=== PATIENT | female | born 1945 | race Caucasian/White ===

== ENCOUNTER 2019-02-26 11:08 | Inpatient (IN) ==
[2019-02-26 12:21] LABS: Basophils % 0.1 %; Hemoglobin 14.1 g/dL (11.5-15.4); Mean Corpuscular Volume 89.5 fL (83.0-100.0); Monocytes % 5.4 %
[2019-02-26 12:22] LABS: Prothrombin Time 11.9 Seconds (9.4-12.1)
[2019-02-26 12:23] LABS: Immature Granulocytes % 0.9 % (0-4); Immature Platelets 8.1 % (1.1-6.1); Lymphocytes # 0.3 K/mcL (0.6-4.6); Lymphocytes % 4.6 %; Mean Corpuscular HGB Conc 34.4 g/dL (31.6-35.5); Mean Corpuscular Hemoglobin 30.8 pg (28.0-33.3); Mean Platelet Volume 10.5 fL (9.4-12.4); Monocytes # 0.4 K/mcL (0.0-1.3); Neutrophils # 6.2 K/mcL (1.6-8.9); Red Blood Count 4.58 M/mcL (3.82-4.97); Red Cell Distribution Width 13.8 % (11.5-14.5)
[2019-02-26 12:28] LABS: Platelet Count 49 K/mcL (140-400)
[2019-02-26 12:54] LABS: Alanine Aminotransferase 116 Units/L (7-52); Albumin 3.6 g/dL (3.5-5.7); Alkaline Phosphatase 136 Units/L (34-104); Aspartate Amino Transferase 148 Units/L (13-39); BUN/Creatinine Ratio 25 (6-26); Bilirubin,Direct 0.2 mg/dL (0.0-0.2); Bilirubin,Indirect 0.6 mg/dL (0.0-1.0); Bilirubin,Total 0.8 mg/dL (0.3-1.0); Blood Urea Nitrogen 17 mg/dL (8-23); Calcium 8.9 mg/dL (8.6-10.3); Carbon Dioxide 44 mEq/L (23-29); Chloride 85 mEq/L (98-107); Globulin 1.8 g/dL (2.4-3.5); Glucose 255 mg/dL (70-105); Osmolality,Calculated 298 (280-300); Potassium 2.4 mEq/L (3.5-5.1); Sodium 139 mEq/L (136-145); Total Protein 5.4 g/dL (6.4-8.9); Troponin I 0.03 ng/mL (< 0.04); eGFR For African Americans > 60 (> 60); eGFR For Non-African Americans > 60 (> 60)
[2019-02-26] MEDS ORDERED: Isovue-370 500 ML BOTTLE IVP ONE (15:03)
[2019-02-26] MEDS ORDERED: Ondansetron 4 MG/2 ML VIAL IVP PRN (17:52)
[2019-02-26] MEDS ORDERED: Naloxone 0.4 MG/ML INJ IVP PRN ×2 (17:52→18:29)
[2019-02-26 18:01] LABS: Alanine Aminotransferase 116 Units/L (7-52); Albumin 3.5 g/dL (3.5-5.7); Albumin/Globulin Ratio 2.1 (1.1-2.2); Alkaline Phosphatase 149 Units/L (34-104); Aspartate Amino Transferase 149 Units/L (13-39); BUN/Creatinine Ratio 22 (6-26); Bilirubin,Total 0.7 mg/dL (0.3-1.0); Blood Urea Nitrogen 16 mg/dL (8-23); Calcium 8.5 mg/dL (8.6-10.3); Chloride 88 mEq/L (98-107); Globulin 1.7 g/dL (2.4-3.5); Glucose 487 mg/dL (70-105); Osmolality,Calculated 309 (280-300); Potassium 3.3 mEq/L (3.5-5.1); Sodium 138 mEq/L (136-145); Total Protein 5.2 g/dL (6.4-8.9); eGFR For African Americans > 60 (> 60); eGFR For Non-African Americans > 60 (> 60)
[2019-02-26] MEDS ORDERED: Dextrose Gel 15 GM/37.5 ML TUBE PO PRN ×2 (18:13)
[2019-02-26] MEDS ORDERED: D5% in Water 1,000 ML IVC PRN (18:13)
[2019-02-26] MEDS ORDERED: *HR* Dextrose 50 % in Water (Syg) 50 ML SYRINGE IVP PRN (18:13)
[2019-02-26 18:24] LABS: Carbon Dioxide 43 mEq/L (23-29)
[2019-02-26] MEDS ORDERED: Acetaminophen 325 MG TABLET PO PRN (18:29)
[2019-02-26] MEDS ORDERED: *HR* OxyCODONE Immed Rel 5 MG TABLET PO PRN (18:29)
[2019-02-26] MEDS ORDERED: *HR* LORazepam 1 MG TABLET PO SCH (21:00)
[2019-02-26] MEDS ORDERED: Insulin LISPRO 300 UNITS/3 ML VIAL SQ SCH (21:00)
[2019-02-26] MEDS: *HR* LORazepam 0.5 MG TABLET PO SCH (21:32)
[2019-02-26] MEDS: Budesonide/Formoterol 160/4.5 1 PUFF INH IH SCH (21:35)
[2019-02-26] MEDS ORDERED: POTASSIUM CHLORIDE IVPB ONE (22:15)
[2019-02-26] MEDS ORDERED: SODIUM CHLORIDE 0.9% IVPB ONE (22:15)
[2019-02-26] MEDS ORDERED: LIDOCAINE MPF 1% IVPB ONE (22:15)
[2019-02-26] MEDS ORDERED: Potassium Chloride 40 MEQ, Lidocaine 1% 2 ML in 0.9 % Sodium Chloride 500 ML IVPB ONE (22:45)
[2019-02-27] MEDS: *HR* Heparin 5,000 UNIT/ML VIAL SQ SCH ×2 (05:35→18:09)
[2019-02-27 05:53] LABS: Basophils % 0.2 %; Mean Corpuscular Volume 92.2 fL (83.0-100.0); Red Cell Distribution Width 14.1 % (11.5-14.5)
[2019-02-27 05:55] LABS: Hematocrit 37.8 % (35.3-44.9); Hemoglobin 12.6 g/dL (11.5-15.4); Immature Granulocytes % 0.8 % (0-4); Immature Platelets 7.9 % (1.1-6.1); Lymphocytes # 0.2 K/mcL (0.6-4.6); Mean Corpuscular HGB Conc 33.3 g/dL (31.6-35.5); Mean Corpuscular Hemoglobin 30.7 pg (28.0-33.3); Mean Platelet Volume 12.1 fL (9.4-12.4); Monocytes # 0.4 K/mcL (0.0-1.3); Monocytes % 6.2 %; Neutrophils # 5.3 K/mcL (1.6-8.9); Segmented Neutrophils % 88.8 %
[2019-02-27 05:57] LABS: Platelet Count 34 K/mcL (140-400)
[2019-02-27 06:27] LABS: Alanine Aminotransferase 97 Units/L (7-52); Albumin 3.1 g/dL (3.5-5.7); Albumin/Globulin Ratio 1.8 (1.1-2.2); Alkaline Phosphatase 123 Units/L (34-104); Aspartate Amino Transferase 96 Units/L (13-39); BUN/Creatinine Ratio 22 (6-26); Bilirubin,Total 0.6 mg/dL (0.3-1.0); Blood Urea Nitrogen 12 mg/dL (8-23); Calcium 8.3 mg/dL (8.6-10.3); Carbon Dioxide 41 mEq/L (23-29); Chloride 92 mEq/L (98-107); Globulin 1.7 g/dL (2.4-3.5); Glucose 255 mg/dL (70-105); Osmolality,Calculated 302 (280-300); Sodium 142 mEq/L (136-145); Total Protein 4.8 g/dL (6.4-8.9); eGFR For African Americans > 60 (> 60); eGFR For Non-African Americans > 60 (> 60)
[2019-02-27 07:09] LABS: Estimated Average Glucose 171 mg/dl
[2019-02-27] MEDS ORDERED: Insulin LISPRO 300 UNITS/3 ML VIAL SQ SCH ×2 (07:30→08:11)
[2019-02-27] MEDS: *HR* LORazepam 0.5 MG TABLET PO SCH (09:35)
[2019-02-27] MEDS ORDERED: Magic Mouthwash 10 ML UD Cup PO PRN (09:58)
[2019-02-27] MEDS ORDERED: *HR* LORazepam 0.5 MG TABLET PO PRN (10:04)
[2019-02-27 10:08] LABS: Adenovirus F 40/41 PCR Not detected (Not detect); C.difficile Toxin A/B Gene PCR Not detected (Not detect); Campylobacter by PCR Not detected (Not detect); Cryptosporidium by PCR Not detected (Not detect); Cyclospora cayetanensis PCR Not detected (Not detect); Entamoeba histolytica PCR Not detected (Not detect); Enteroaggregative E.coli(EAEC) Not detected (Not detect); Enteropathogenic E.coli(EPEC) Not detected (Not detect); Enterotoxigenic E.coli (ETEC) Not detected (Not detect); Giardia lamblia PCR Not detected (Not detect); Plesiomonas shigelloides PCR Not detected (Not detect); Salmonella PCR Not detected (Not detect); Shig/EnteroinvasiveE coli EIEC Not detected (Not detect); Shigalike tox-prod E coli STEC Not detected (Not detect); Vibrio PCR Not detected (Not detect); Vibrio cholerae PCR Not detected (Not detect); Yersinia enterocolitica PCR Not detected (Not detect)
[2019-02-27 10:09] LABS: Astrovirus PCR Not detected (Not detect); Norovirus GI/GII PCR Not detected (Not detect); Rotavirus A PCR Not detected (Not detect); Sapovirus PCR Not detected (Not detect)
[2019-02-27] MEDS: Budesonide/Formoterol 160/4.5 1 PUFF INH IH SCH ×3 (10:14→22:27)
[2019-02-27 10:19] LABS: ABG Base Excess 20 mEq/L (-2 to 3); ABG HCO3 44 mEq/L (21-27); ABG Oxygen Saturation 90 % (95-98); ABG PCO2 46 mmHg (35-45); ABG PH 7.59 pH Units (7.32-7.45); ABG PO2 51 mmHg (85-104); ABG TCO2 46 mEq/L (20-26)
[2019-02-27] MEDS: Insulin LISPRO 300 UNITS/3 ML VIAL SQ SCH ×2 (13:16→18:09)
[2019-02-27] MEDS: Gabapentin 300 MG CAPSULE PO SCH ×2 (13:16→20:18)
[2019-02-27] MEDS: Primidone 50 MG TABLET PO SCH ×2 (13:16→20:18)
[2019-02-27 13:19] LABS: Adenovirus Not Detected (Not Detect); Bordetella Pertussis Not Detected (Not Detect); Chlamydophila pneumoniae Not Detected (Not Detect); Coronavirus 229E Not Detected (Not Detect); Coronavirus HKU1 Not Detected (Not Detect); Coronavirus NL63 Not Detected (Not Detect); Coronavirus OC43 Not Detected (Not Detect); Human Metapneumovirus Not Detected (Not Detect); Human Rhinovirus/Enterovirus Not Detected (Not Detect); Influenza A Subtype 2009 H1 Not Detected (Not Detect); Influenza B Not Detected (Not Detect); Mycoplasma pneumoniae Not Detected (Not Detect); Parainfluenza Virus 1 Not Detected (Not Detect); Parainfluenza Virus 2 Not Detected (Not Detect); Parainfluenza Virus 3 Not Detected (Not Detect); Parainfluenza Virus 4 Not Detected (Not Detect); Respiratory Syncytial Virus Not Detected (Not Detect)
[2019-02-27 14:33] LABS: BUN/Creatinine Ratio 18 (6-26); Blood Urea Nitrogen 13 mg/dL (8-23); Calcium 8.7 mg/dL (8.6-10.3); Carbon Dioxide 41 mEq/L (23-29); Chloride 90 mEq/L (98-107); Glucose 393 mg/dL (70-105); Magnesium 1.9 mg/dL (1.6-2.6); Osmolality,Calculated 308 (280-300); Potassium 3.4 mEq/L (3.5-5.1); Sodium 141 mEq/L (136-145); eGFR For African Americans > 60 (> 60); eGFR For Non-African Americans > 60 (> 60)
[2019-02-28 01:08] LABS: Basophils % 0.1 %; Hematocrit 38.6 % (35.3-44.9); Immature Platelets 10.1 % (1.1-6.1); Lymphocytes # 0.3 K/mcL (0.6-4.6); Lymphocytes % 5.1 %; Mean Corpuscular HGB Conc 33.7 g/dL (31.6-35.5); Mean Corpuscular Volume 91.9 fL (83.0-100.0); Monocytes # 0.3 K/mcL (0.0-1.3); Monocytes % 5.1 %; Neutrophils # 5.9 K/mcL (1.6-8.9); Red Cell Distribution Width 14.2 % (11.5-14.5); Segmented Neutrophils % 88.7 %; White Blood Count 6.7 K/mcL (4.3-11.1)
[2019-02-28 01:16] LABS: Platelet Count 36 K/mcL (140-400)
[2019-02-28 01:27] LABS: Alanine Aminotransferase 85 Units/L (7-52); Albumin 3.1 g/dL (3.5-5.7); Albumin/Globulin Ratio 1.6 (1.1-2.2); Alkaline Phosphatase 121 Units/L (34-104); Aspartate Amino Transferase 61 Units/L (13-39); BUN/Creatinine Ratio 23 (6-26); Bilirubin,Total 0.5 mg/dL (0.3-1.0); Blood Urea Nitrogen 14 mg/dL (8-23); Calcium 8.3 mg/dL (8.6-10.3); Carbon Dioxide 39 mEq/L (23-29); Chloride 96 mEq/L (98-107); Glucose 105 mg/dL (70-105); Magnesium 2.1 mg/dL (1.6-2.6); Osmolality,Calculated 293 (280-300); Phosphorous 1.6 mg/dL (2.7-4.5); Potassium 3.5 mEq/L (3.5-5.1); Sodium 141 mEq/L (136-145); Total Protein 5.1 g/dL (6.4-8.9); eGFR For African Americans > 60 (> 60); eGFR For Non-African Americans > 60 (> 60)
[2019-02-28] MEDS: *HR* Heparin 5,000 UNIT/ML VIAL SQ SCH ×2 (05:09→16:34)
[2019-02-28] MEDS: Budesonide/Formoterol 160/4.5 1 PUFF INH IH SCH ×2 (07:58→20:10)
[2019-02-28] MEDS: Insulin LISPRO 300 UNITS/3 ML VIAL SQ SCH ×4 (08:18→20:30)
[2019-02-28] MEDS: Primidone 50 MG TABLET PO SCH ×3 (08:18→20:29)
[2019-02-28] MEDS: Gabapentin 300 MG CAPSULE PO SCH ×3 (08:18→20:29)
[2019-02-28] MEDS: Cholecalciferol (D-3) 1,000 UNIT (25MCG) TABLET PO SCH (08:18)
[2019-03-01] MEDS: Insulin LISPRO 300 UNITS/3 ML VIAL SQ SCH ×6 (00:57→21:25)
[2019-03-01 02:46] LABS: BUN/Creatinine Ratio 31 (6-26); Blood Urea Nitrogen 24 mg/dL (8-23); Calcium 8.5 mg/dL (8.6-10.3); Carbon Dioxide 40 mEq/L (23-29); Chloride 91 mEq/L (98-107); Glucose 180 mg/dL (70-105); Osmolality,Calculated 297 (280-300); Phosphorous 2.3 mg/dL (2.7-4.5); Potassium 3.4 mEq/L (3.5-5.1); Sodium 139 mEq/L (136-145); eGFR For African Americans > 60 (> 60); eGFR For Non-African Americans > 60 (> 60)
[2019-03-01] MEDS: *HR* Heparin 5,000 UNIT/ML VIAL SQ SCH ×2 (05:27→17:53)
[2019-03-01] MEDS: Budesonide/Formoterol 160/4.5 1 PUFF INH IH SCH ×2 (08:13→20:16)
[2019-03-01] MEDS: Insulin DETEMIR 100 UNIT/ML X5UNITS SQ SCH ×3 (10:58→21:25)
[2019-03-01] MEDS: Primidone 50 MG TABLET PO SCH ×3 (10:58→21:25)
[2019-03-01] MEDS: Gabapentin 300 MG CAPSULE PO SCH ×3 (10:58→21:25)
[2019-03-01] MEDS: Cholecalciferol (D-3) 1,000 UNIT (25MCG) TABLET PO SCH (10:58)
[2019-03-02] MEDS: Insulin LISPRO 300 UNITS/3 ML VIAL SQ SCH ×4 (00:45→13:08)
[2019-03-02 05:02] LABS: BUN/Creatinine Ratio 35 (6-26); Blood Urea Nitrogen 19 mg/dL (8-23); Calcium 8.9 mg/dL (8.6-10.3); Carbon Dioxide 38 mEq/L (23-29); Chloride 95 mEq/L (98-107); Glucose 68 mg/dL (70-105); Magnesium 1.9 mg/dL (1.6-2.6); Osmolality,Calculated 289 (280-300); Phosphorous 2.6 mg/dL (2.7-4.5); Potassium 3.6 mEq/L (3.5-5.1); Sodium 139 mEq/L (136-145); eGFR For African Americans > 60 (> 60); eGFR For Non-African Americans > 60 (> 60)
[2019-03-02] MEDS: *HR* Heparin 5,000 UNIT/ML VIAL SQ SCH (05:27)
[2019-03-02 07:22] VITALS: BP 130/76
[2019-03-02] MEDS: Budesonide/Formoterol 160/4.5 1 PUFF INH IH SCH (08:09)
[2019-03-02] MEDS: Primidone 50 MG TABLET PO SCH (08:28)
[2019-03-02] MEDS: Insulin DETEMIR 100 UNIT/ML X5UNITS SQ SCH (08:28)
[2019-03-02] MEDS: Cholecalciferol (D-3) 1,000 UNIT (25MCG) TABLET PO SCH (08:28)
[2019-03-02] MEDS: Gabapentin 300 MG CAPSULE PO SCH (08:28)
== END 2019-03-02 15:15 | DRG 641 ==
LOC: EMEROOARM 11:08 → 3BNU 11:08 → SUATTDRO 18:29 → 3BNU 19:34
PROVIDERS: ADMIT Internal Medicine; ATTEND Internal Medicine

== ENCOUNTER 2019-03-24 14:35 | Inpatient (IN) ==
[2019-03-24] MEDS ORDERED: 0.9 % Sodium Chloride 250 ML IVC ONE (14:43)
[2019-03-24 15:44] LABS: Prothrombin Time 11.7 Seconds (9.4-12.1)
[2019-03-24 15:49] LABS: Activated Partial Thrombo Time 16.6 Seconds (26.0-36.0)
[2019-03-24 16:06] LABS: Basophils % 0.2 %; Hemoglobin 12.3 g/dL (11.5-15.4); Immature Granulocytes % 0.7 % (0-4); Lymphocytes # 0.4 K/mcL (0.6-4.6); Lymphocytes % 4.2 %; Mean Corpuscular HGB Conc 33.2 g/dL (31.6-35.5); Mean Corpuscular Hemoglobin 30.8 pg (28.0-33.3); Mean Corpuscular Volume 92.7 fL (83.0-100.0); Mean Platelet Volume 13.6 fL (9.4-12.4); Monocytes # 0.2 K/mcL (0.0-1.3); Monocytes % 2.2 %; Neutrophils # 8.3 K/mcL (1.6-8.9); Red Blood Count 3.99 M/mcL (3.82-4.97); Red Cell Distribution Width 16.7 % (11.5-14.5); Segmented Neutrophils % 92.7 %
[2019-03-24 16:09] LABS: Alanine Aminotransferase 153 Units/L (7-52); Albumin 2.4 g/dL (3.5-5.7); Alkaline Phosphatase 373 Units/L (34-104); Aspartate Amino Transferase 462 Units/L (13-39); BUN/Creatinine Ratio 33 (6-26); Bilirubin,Total 1.4 mg/dL (0.3-1.0); Blood Urea Nitrogen 16 mg/dL (8-23); Calcium 7.7 mg/dL (8.6-10.3); Carbon Dioxide 39 mEq/L (23-29); Chloride 94 mEq/L (98-107); Globulin 2.3 g/dL (2.4-3.5); Glucose 98 mg/dL (70-105); Osmolality,Calculated 291 (280-300); Potassium 3.3 mEq/L (3.5-5.1); Sodium 140 mEq/L (136-145); Total Protein 4.7 g/dL (6.4-8.9); Troponin I 0.03 ng/mL (< 0.04); eGFR For African Americans > 60 (> 60); eGFR For Non-African Americans > 60 (> 60)
[2019-03-24 16:09] LABS: Platelet Count 33 K/mcL (140-400)
[2019-03-24] MEDS ORDERED: Ipratropium/Albuterol Neb 3 ML IH ONE (16:28)
[2019-03-24 17:34] LABS: Bilirubin,Urine Moderate (Negative); Blood,Urine Negative (Negative); Clarity,Urine Cloudy (Clear); Color,Urine Dark Yellow (Yellow); Glucose,Urine (UA) Normal (Normal); Ketones,Urine Trace mg/dL (Negative); Leukocyte Esterase,Urine Negative (Negative); Nitrite,Urine Negative (Negative); PH,Urine 5.5 pH Units (5.0-8.0); Protein,Urine 100 mg/dL (Neg-Trace); Specific Gravity,Urine 1.025 (1.010-1.025); Urobilinogen,Urine Normal (Normal)
[2019-03-24 17:36] LABS: RBC,Urine 15-30 per hpf (0-3); Squamous Epithelial Cell,Urine Many per lpf (None-Few); WBC,Urine 0-3 per hpf (0-3)
[2019-03-24 17:55] LABS: Bacteria,Urine Moderate per hpf (None-Few); Hyaline Casts,Urine Moderate per lpf (None-Few)
[2019-03-24] MEDS ORDERED: Isovue-370 500 ML BOTTLE IVP ONE (18:21)
[2019-03-24] MEDS ORDERED: Acetaminophen 325 MG TABLET PO PRN (20:58)
[2019-03-24] MEDS ORDERED: Naloxone 0.4 MG/ML INJ IVP PRN (20:58)
[2019-03-24] MEDS ORDERED: Ondansetron 4 MG/2 ML VIAL IVP PRN (20:58)
[2019-03-24] MEDS ORDERED: *HR* LORazepam 0.5 MG TABLET PO PRN (21:02)
[2019-03-24] MEDS ORDERED: *HR* Dextrose 50 % in Water (Syg) 50 ML SYRINGE IVP PRN (21:13)
[2019-03-24] MEDS ORDERED: Dextrose Gel 15 GM/37.5 ML TUBE PO PRN ×2 (21:13)
[2019-03-24] MEDS ORDERED: D5% in Water 1,000 ML IVC PRN (21:13)
[2019-03-24] MEDS ORDERED: Furosemide 40 MG/4 ML VIAL IVP ONE (21:39)
[2019-03-24] MEDS ORDERED: Furosemide 40 MG/4 ML VIAL ONE (21:40)
[2019-03-24] MEDS ORDERED: Ipratropium/Albuterol Neb 3 ML IH PRN (22:55)
[2019-03-25 03:22] LABS: Adenovirus Not Detected (Not Detect); Bordetella Pertussis Not Detected (Not Detect); Chlamydophila pneumoniae Not Detected (Not Detect); Coronavirus 229E Not Detected (Not Detect); Coronavirus HKU1 Not Detected (Not Detect); Coronavirus NL63 Not Detected (Not Detect); Coronavirus OC43 Not Detected (Not Detect); Human Metapneumovirus DETECTED (Not Detect); Human Rhinovirus/Enterovirus Not Detected (Not Detect); Influenza A Subtype 2009 H1 Not Detected (Not Detect); Influenza B Not Detected (Not Detect); Parainfluenza Virus 1 Not Detected (Not Detect); Parainfluenza Virus 2 Not Detected (Not Detect); Parainfluenza Virus 3 Not Detected (Not Detect); Parainfluenza Virus 4 Not Detected (Not Detect); Respiratory Syncytial Virus Not Detected (Not Detect)
[2019-03-25 03:23] LABS: Mycoplasma pneumoniae Not Detected (Not Detect)
[2019-03-25 05:05] LABS: Nucleated Red Blood Cells 0.4 /100 WBC (0)
[2019-03-25 05:07] LABS: Basophils % 0.4 %; Hematocrit 36.5 % (35.3-44.9); Hemoglobin 12.4 g/dL (11.5-15.4); Immature Granulocytes % 1.6 % (0-4); Immature Platelets 23.7 % (1.1-6.1); Lymphocytes # 0.6 K/mcL (0.6-4.6); Lymphocytes % 7.6 %; Mean Corpuscular Hemoglobin 30.8 pg (28.0-33.3); Mean Corpuscular Volume 90.6 fL (83.0-100.0); Mean Platelet Volume 13.9 fL (9.4-12.4); Monocytes # 0.2 K/mcL (0.0-1.3); Monocytes % 2.4 %; Neutrophils # 6.7 K/mcL (1.6-8.9); Red Blood Count 4.03 M/mcL (3.82-4.97); Red Cell Distribution Width 16.9 % (11.5-14.5); White Blood Count 7.6 K/mcL (4.3-11.1)
[2019-03-25 05:28] LABS: BUN/Creatinine Ratio 39 (6-26); Blood Urea Nitrogen 15 mg/dL (8-23); Calcium 7.7 mg/dL (8.6-10.3); Carbon Dioxide 39 mEq/L (23-29); Chloride 93 mEq/L (98-107); Glucose 81 mg/dL (70-105); Magnesium 1.7 mg/dL (1.6-2.6); Osmolality,Calculated 290 (280-300); Phosphorous 2.6 mg/dL (2.7-4.5); Potassium 3.6 mEq/L (3.5-5.1); Sodium 140 mEq/L (136-145); eGFR For African Americans > 60 (> 60); eGFR For Non-African Americans > 60 (> 60)
[2019-03-25 05:54] LABS: Albumin 2.6 g/dL (3.5-5.7); Albumin/Globulin Ratio 1.2 (1.1-2.2); Bilirubin,Direct 0.9 mg/dL (0.0-0.2); Bilirubin,Indirect 1.3 mg/dL (0.0-1.0); Bilirubin,Total 2.2 mg/dL (0.3-1.0); Globulin 2.1 g/dL (2.4-3.5); Thyroid Stimulating Hormone 1.697 mcIU/mL (0.340-5.600); Total Protein 4.7 g/dL (6.4-8.9)
[2019-03-25 06:05] LABS: Platelet Count 18 K/mcL (140-400)
[2019-03-25] MEDS ORDERED: 0.9 % Sodium Chloride 250 ML IVC SCH (06:45)
[2019-03-25] MEDS: Insulin LISPRO 300 UNITS/3 ML VIAL SQ SCH ×4 (07:12→21:39)
[2019-03-25] MEDS ORDERED: NON-FORMULARY MEDICATION 1 EACH EACH (Omega-3/Dha/Epa/Fish Oil [Cvs Fish Oil 1,000 Mg Soft PO SCH (09:00)
[2019-03-25] MEDS: Lactulose Oral Soln 20 GM/30 ML UDC PO SCH (11:55)
[2019-03-25] MEDS: Gabapentin 300 MG CAPSULE PO SCH ×2 (11:55→15:47)
[2019-03-25] MEDS: Cholecalciferol (D-3) 1,000 UNIT (25MCG) TABLET PO SCH (11:55)
[2019-03-25] MEDS ORDERED: Azithromycin 500 MG in 0.9 % Sodium Chloride 250 ML IVPB ONE (11:55)
[2019-03-25] MEDS: Multivit/Ca/Min/Fe/FA 1 TAB TABLET PO SCH (11:55)
[2019-03-25] MEDS: Primidone 50 MG TABLET PO SCH ×2 (11:55→15:47)
[2019-03-25] MEDS ORDERED: cefTRIAXone 2,000 MG in Water for inj. (sterile) 20 ML IVP SCH (12:00)
[2019-03-25] MEDS ORDERED: 0.9 % Sodium Chloride 1,000 ML IVC SCH (12:00)
[2019-03-25] MEDS ORDERED: Albumin 25% 25gram/100mL 25 GM/100 ML IV.SOLN IVC SCH (12:00)
[2019-03-25] MEDS: Ipratropium/Albuterol Neb 3 ML IH SCH ×2 (15:19→21:51)
[2019-03-25] MEDS ORDERED: MetroNIDAZOLE 500 MG/100 ML 500 MG/100 ML BAG IVPB SCH (16:00)
[2019-03-25] MEDS ORDERED: E-Z-HD (BARIUM SULF) SUSPENSION PO ONE (16:05)
[2019-03-25] MEDS ORDERED: E-Z-PAQUE (BARIUM SULF) SUSP 1 BOTTLE PO ONE (16:05)
[2019-03-25] MEDS: Albumin 25% 25gram/100mL 25 GM/100 ML IV.SOLN IVC SCH ×3 (17:02→20:25)
[2019-03-25] MEDS ORDERED: Ampicillin/Sulbactam 3,000 MG in 0.9 % Sodium Chloride Mini Bag 100 ML IVPB SCH (18:00)
[2019-03-25] MEDS ORDERED: Ampicillin/Sulbactam 3,000 MG in 0.9 % Sodium Chloride 100 ML IVPB SCH (18:00)
[2019-03-25] MEDS: Ampicillin/Sulbactam 3,000 MG in 0.9 % Sodium Chloride Mini Bag 100 ML IVPB SCH (18:45)
[2019-03-26] MEDS: Gabapentin 300 MG CAPSULE PO SCH ×4 (00:08→22:16)
[2019-03-26] MEDS: Lactulose Oral Soln 20 GM/30 ML UDC PO SCH ×3 (00:08→22:16)
[2019-03-26] MEDS: Primidone 50 MG TABLET PO SCH ×4 (00:08→22:17)
[2019-03-26] MEDS: Albumin 25% 25gram/100mL 25 GM/100 ML IV.SOLN IVC SCH (00:09)
[2019-03-26] MEDS: Ampicillin/Sulbactam 3,000 MG in 0.9 % Sodium Chloride Mini Bag 100 ML IVPB SCH ×4 (01:23→18:50)
[2019-03-26] MEDS: Ipratropium/Albuterol Neb 3 ML IH SCH ×4 (03:42→22:13)
[2019-03-26 04:24] LABS: Mean Corpuscular HGB Conc 32.7 g/dL (31.6-35.5); Mean Corpuscular Hemoglobin 30.9 pg (28.0-33.3); Mean Corpuscular Volume 94.5 fL (83.0-100.0); Red Cell Distribution Width 17.6 % (11.5-14.5)
[2019-03-26 04:26] LABS: Hematocrit 25.7 % (35.3-44.9); Hemoglobin 8.4 g/dL (11.5-15.4); Immature Granulocytes % 1.6 % (0-4); Immature Platelets 16.5 % (1.1-6.1); Lymphocytes # 0.2 K/mcL (0.6-4.6); Lymphocytes % 5.7 %; Mean Platelet Volume 12.4 fL (9.4-12.4); Monocytes # 0.1 K/mcL (0.0-1.3); Monocytes % 2.1 %; Neutrophils # 3.5 K/mcL (1.6-8.9); Nucleated Red Blood Cells 0.5 /100 WBC (0); Red Blood Count 2.72 M/mcL (3.82-4.97); Segmented Neutrophils % 90.6 %; White Blood Count 3.9 K/mcL (4.3-11.1)
[2019-03-26 04:36] LABS: Platelet Count 18 K/mcL (140-400)
[2019-03-26 04:46] LABS: Magnesium 1.8 mg/dL (1.6-2.6); Phosphorous 2.6 mg/dL (2.7-4.5)
[2019-03-26 04:55] LABS: Alanine Aminotransferase 206 Units/L (7-52); Albumin 3.5 g/dL (3.5-5.7); Albumin/Globulin Ratio 2.5 (1.1-2.2); Alkaline Phosphatase 344 Units/L (34-104); Aspartate Amino Transferase 885 Units/L (13-39); BUN/Creatinine Ratio 26 (6-26); Bilirubin,Total 3.7 mg/dL (0.3-1.0); Blood Urea Nitrogen 15 mg/dL (8-23); Carbon Dioxide 41 mEq/L (23-29); Chloride 96 mEq/L (98-107); Globulin 1.4 g/dL (2.4-3.5); Glucose 58 mg/dL (70-105); Osmolality,Calculated 301 (280-300); Potassium 2.4 mEq/L (3.5-5.1); Sodium 146 mEq/L (136-145); Total Protein 4.9 g/dL (6.4-8.9); eGFR For African Americans > 60 (> 60); eGFR For Non-African Americans > 60 (> 60)
[2019-03-26 05:10] LABS: Folate 17.8 ng/mL (3.0-16.0); Vitamin B12 > 1500 pg/mL (250-1100)
[2019-03-26 05:32] LABS: Hepatitis B Surface Antigen Nonreactive (Nonreactive)
[2019-03-26 06:01] LABS: Hepatitis B Core IgM Nonreactive (Nonreactive); Hepatitis C Virus Antibody Nonreactive (Nonreactive)
[2019-03-26 06:02] LABS: Hepatitis A Antibody IgM Nonreactive (Nonreactive)
[2019-03-26 07:02] LABS: Platelet Estimate Normal (Normal)
[2019-03-26 08:56] LABS: Hematocrit 27.1 % (35.3-44.9); Hemoglobin 8.7 g/dL (11.5-15.4); Lymphocytes # 0.2 K/mcL (0.6-4.6); Mean Corpuscular HGB Conc 32.1 g/dL (31.6-35.5); Mean Corpuscular Hemoglobin 30.4 pg (28.0-33.3); Mean Corpuscular Volume 94.8 fL (83.0-100.0); Mean Platelet Volume 12.1 fL (9.4-12.4); Monocytes # 0.1 K/mcL (0.0-1.3); Nucleated Red Blood Cells 0.5 /100 WBC (0); Red Blood Count 2.86 M/mcL (3.82-4.97); Red Cell Distribution Width 17.5 % (11.5-14.5); White Blood Count 4.3 K/mcL (4.3-11.1)
[2019-03-26 08:58] LABS: Platelet Count 18 K/mcL (140-400)
[2019-03-26] MEDS ORDERED: Vancomycin 0 MG in 0.9 % Sodium Chloride 250 ML IVPB SCH (09:00)
[2019-03-26 09:09] LABS: Basophils # 0.1 K/mcL (0.0-0.2); Platelet Estimate Marked Decrease (Normal)
[2019-03-26] MEDS: Insulin LISPRO 300 UNITS/3 ML VIAL SQ SCH ×4 (09:09→22:13)
[2019-03-26 09:25] LABS: Alanine Aminotransferase 193 Units/L (7-52); Albumin 3.5 g/dL (3.5-5.7); Albumin/Globulin Ratio 2.1 (1.1-2.2); Alkaline Phosphatase 359 Units/L (34-104); Aspartate Amino Transferase 769 Units/L (13-39); BUN/Creatinine Ratio 28 (6-26); Bilirubin,Total 3.4 mg/dL (0.3-1.0); Blood Urea Nitrogen 14 mg/dL (8-23); Calcium 8.1 mg/dL (8.6-10.3); Carbon Dioxide 39 mEq/L (23-29); Chloride 96 mEq/L (98-107); Globulin 1.7 g/dL (2.4-3.5); Glucose 54 mg/dL (70-105); Osmolality,Calculated 302 (280-300); Potassium 2.3 mEq/L (3.5-5.1); Sodium 147 mEq/L (136-145); Total Protein 5.2 g/dL (6.4-8.9); eGFR For African Americans > 60 (> 60); eGFR For Non-African Americans > 60 (> 60)
[2019-03-26] MEDS: Multivit/Ca/Min/Fe/FA 1 TAB TABLET PO SCH (10:04)
[2019-03-26] MEDS: Cholecalciferol (D-3) 1,000 UNIT (25MCG) TABLET PO SCH (10:05)
[2019-03-26] MEDS ORDERED: 0.9 % Sodium Chloride 500 ML ONE (10:13)
[2019-03-26 10:37] LABS: Troponin I 0.09 ng/mL (< 0.04)
[2019-03-26 11:24] LABS: Hematocrit 27.6 % (35.3-44.9); Hemoglobin 8.9 g/dL (11.5-15.4)
[2019-03-26] MEDS ORDERED: Isovue-370 500 ML BOTTLE IVP ONE ×2 (11:58→16:10)
[2019-03-26 15:26] LABS: Hematocrit 25.8 % (35.3-44.9); Hemoglobin 8.3 g/dL (11.5-15.4)
[2019-03-26] MEDS ORDERED: D5% in Water 1,000 ML IVC SCH (16:00)
[2019-03-26 19:26] LABS: Lactate Dehydrogenase > 3600 Units/L (140-271); Potassium 2.6 mEq/L (3.5-5.1)
[2019-03-26] MEDS: Lactobacillus 1 EACH CAP.SPRINK PO SCH (22:17)
[2019-03-26 23:11] LABS: Hematocrit 25.9 % (35.3-44.9); Hemoglobin 8.4 g/dL (11.5-15.4)
[2019-03-27] MEDS: Ampicillin/Sulbactam 3,000 MG in 0.9 % Sodium Chloride Mini Bag 100 ML IVPB SCH ×4 (03:39→17:10)
[2019-03-27] MEDS: Ipratropium/Albuterol Neb 3 ML IH SCH ×4 (03:39→22:00)
[2019-03-27 04:38] LABS: Basophils % 0.3 %; Mean Corpuscular Volume 94.4 fL (83.0-100.0)
[2019-03-27 04:40] LABS: Hematocrit 25.4 % (35.3-44.9); Hemoglobin 8.3 g/dL (11.5-15.4); Immature Platelets 9.1 % (1.1-6.1); Lymphocytes # 0.2 K/mcL (0.6-4.6); Lymphocytes % 6.2 %; Mean Corpuscular HGB Conc 32.7 g/dL (31.6-35.5); Mean Corpuscular Hemoglobin 30.9 pg (28.0-33.3); Mean Platelet Volume 11.4 fL (9.4-12.4); Monocytes # 0.2 K/mcL (0.0-1.3); Monocytes % 4.4 %; Neutrophils # 3.4 K/mcL (1.6-8.9); Red Blood Count 2.69 M/mcL (3.82-4.97); Segmented Neutrophils % 88.1 %; White Blood Count 3.9 K/mcL (4.3-11.1)
[2019-03-27 04:46] LABS: Platelet Count 32 K/mcL (140-400)
[2019-03-27 04:57] LABS: Anisocytosis 1+ (Not Present); Platelet Estimate Decreased (Normal)
[2019-03-27 05:04] LABS: Magnesium 2.3 mg/dL (1.6-2.6); Phosphorous 2.5 mg/dL (2.7-4.5)
[2019-03-27 05:10] LABS: Alanine Aminotransferase 159 Units/L (7-52); Albumin 3.1 g/dL (3.5-5.7); Albumin/Globulin Ratio 1.6 (1.1-2.2); Alkaline Phosphatase 296 Units/L (34-104); Aspartate Amino Transferase 345 Units/L (13-39); BUN/Creatinine Ratio 27 (6-26); Bilirubin,Total 2.4 mg/dL (0.3-1.0); Blood Urea Nitrogen 16 mg/dL (8-23); Calcium 8.1 mg/dL (8.6-10.3); Carbon Dioxide 38 mEq/L (23-29); Chloride 98 mEq/L (98-107); Globulin 1.9 g/dL (2.4-3.5); Glucose 155 mg/dL (70-105); Osmolality,Calculated 306 (280-300); Potassium 2.3 mEq/L (3.5-5.1); Sodium 146 mEq/L (136-145); eGFR For African Americans > 60 (> 60); eGFR For Non-African Americans > 60 (> 60)
[2019-03-27] MEDS ORDERED: Potassium Chloride 40 MEQ, Lidocaine 1% 2 ML in 0.9 % Sodium Chloride 500 ML IVPB ONE (05:45)
[2019-03-27] MEDS: Cholecalciferol (D-3) 1,000 UNIT (25MCG) TABLET PO SCH (08:03)
[2019-03-27] MEDS: Multivit/Ca/Min/Fe/FA 1 TAB TABLET PO SCH (08:03)
[2019-03-27] MEDS: Primidone 50 MG TABLET PO SCH ×3 (08:03→20:49)
[2019-03-27] MEDS: Lactulose Oral Soln 20 GM/30 ML UDC PO SCH (08:03)
[2019-03-27] MEDS: Lactobacillus 1 EACH CAP.SPRINK PO SCH ×2 (08:03→20:48)
[2019-03-27] MEDS: Gabapentin 300 MG CAPSULE PO SCH ×3 (08:03→20:49)
[2019-03-27] MEDS: Insulin LISPRO 300 UNITS/3 ML VIAL SQ SCH ×4 (08:04→20:49)
[2019-03-27] MEDS: Calcium Gluconate 1gm/50mL 1 GM/50 ML BAG IVPB SCH ×2 (11:15→12:38)
[2019-03-27] MEDS ORDERED: *HR* OxyCODONE Immed Rel 5 MG TABLET PO PRN (13:06)
[2019-03-27] MEDS: Albumin 25% 25gram/100mL 25 GM/100 ML IV.SOLN IVC SCH ×2 (13:57→15:47)
[2019-03-28] MEDS: Ampicillin/Sulbactam 3,000 MG in 0.9 % Sodium Chloride Mini Bag 100 ML IVPB SCH ×4 (00:29→17:33)
[2019-03-28] MEDS: Ipratropium/Albuterol Neb 3 ML IH SCH ×4 (03:50→21:22)
[2019-03-28 04:34] LABS: Nucleated Red Blood Cells 0.5 /100 WBC (0)
[2019-03-28 04:36] LABS: Hematocrit 24.6 % (35.3-44.9); Hemoglobin 7.8 g/dL (11.5-15.4); Immature Granulocytes % 0.8 % (0-4); Immature Platelets 13.4 % (1.1-6.1); Lymphocytes # 0.3 K/mcL (0.6-4.6); Lymphocytes % 8.7 %; Mean Corpuscular HGB Conc 31.7 g/dL (31.6-35.5); Mean Corpuscular Hemoglobin 30.1 pg (28.0-33.3); Mean Platelet Volume 13.1 fL (9.4-12.4); Monocytes # 0.2 K/mcL (0.0-1.3); Red Blood Count 2.59 M/mcL (3.82-4.97); Red Cell Distribution Width 18.1 % (11.5-14.5); Segmented Neutrophils % 85.5 %; White Blood Count 3.8 K/mcL (4.3-11.1)
[2019-03-28 04:39] LABS: Neutrophils # 3.3 K/mcL (1.6-8.9)
[2019-03-28 04:41] LABS: Platelet Count 23 K/mcL (140-400)
[2019-03-28 04:54] LABS: Alanine Aminotransferase 105 Units/L (7-52); Albumin 3.3 g/dL (3.5-5.7); Albumin/Globulin Ratio 1.8 (1.1-2.2); Alkaline Phosphatase 230 Units/L (34-104); Aspartate Amino Transferase 140 Units/L (13-39); BUN/Creatinine Ratio 20 (6-26); Bilirubin,Total 2.4 mg/dL (0.3-1.0); Blood Urea Nitrogen 16 mg/dL (8-23); Calcium 8.4 mg/dL (8.6-10.3); Carbon Dioxide 37 mEq/L (23-29); Chloride 101 mEq/L (98-107); Globulin 1.8 g/dL (2.4-3.5); Glucose 193 mg/dL (70-105); Magnesium 2.2 mg/dL (1.6-2.6); Osmolality,Calculated 310 (280-300); Phosphorous 3.3 mg/dL (2.7-4.5); Potassium 2.7 mEq/L (3.5-5.1); Sodium 147 mEq/L (136-145); Total Protein 5.1 g/dL (6.4-8.9); eGFR For African Americans > 60 (> 60); eGFR For Non-African Americans > 60 (> 60)
[2019-03-28] MEDS ORDERED: Potassium Chloride 40 MEQ, Lidocaine 1% 2 ML in 0.9 % Sodium Chloride 500 ML IVPB ONE (07:03)
[2019-03-28] MEDS: Insulin LISPRO 300 UNITS/3 ML VIAL SQ SCH ×4 (07:54→21:12)
[2019-03-28] MEDS: Gabapentin 300 MG CAPSULE PO SCH ×3 (08:00→21:12)
[2019-03-28] MEDS: Multivit/Ca/Min/Fe/FA 1 TAB TABLET PO SCH (08:00)
[2019-03-28] MEDS: Lactulose Oral Soln 20 GM/30 ML UDC PO SCH (08:00)
[2019-03-28] MEDS: Primidone 50 MG TABLET PO SCH ×3 (08:00→21:12)
[2019-03-28] MEDS: Lactobacillus 1 EACH CAP.SPRINK PO SCH ×2 (08:00→21:12)
[2019-03-28] MEDS: Cholecalciferol (D-3) 1,000 UNIT (25MCG) TABLET PO SCH (08:01)
[2019-03-28] MEDS ORDERED: Albumin 25% 25gram/100mL 25 GM/100 ML IV.SOLN IVPB ONE (11:27)
[2019-03-28] MEDS ORDERED: Calcium Gluconate 1gm/50mL 1 GM/50 ML BAG IVPB ONE (11:27)
[2019-03-28] MEDS ORDERED: Aminoglycoside Consult 1 EACH MC ONE (16:32)
[2019-03-29] MEDS: Ampicillin/Sulbactam 3,000 MG in 0.9 % Sodium Chloride Mini Bag 100 ML IVPB SCH ×2 (00:18→06:19)
[2019-03-29] MEDS: Ipratropium/Albuterol Neb 3 ML IH SCH ×3 (03:32→15:29)
[2019-03-29] MEDS: Insulin LISPRO 300 UNITS/3 ML VIAL SQ SCH ×2 (08:23→11:48)
[2019-03-29] MEDS: Lactobacillus 1 EACH CAP.SPRINK PO SCH (08:25)
[2019-03-29] MEDS: Primidone 50 MG TABLET PO SCH ×2 (08:25→14:21)
[2019-03-29] MEDS: Gabapentin 300 MG CAPSULE PO SCH ×2 (08:25→14:21)
[2019-03-29] MEDS: Lactulose Oral Soln 20 GM/30 ML UDC PO SCH (08:25)
[2019-03-29] MEDS: Multivit/Ca/Min/Fe/FA 1 TAB TABLET PO SCH (08:25)
[2019-03-29] MEDS: Cholecalciferol (D-3) 1,000 UNIT (25MCG) TABLET PO SCH (08:26)
[2019-03-29] MEDS ORDERED: Doxycycline 100 MG CAPSULE PO SCH (10:15)
[2019-03-29 10:30] VITALS: BP 152/89
[2019-03-29] MEDS ORDERED: Amoxicillin/Clavulanate 500 MG TABLET PO SCH (17:00)
== END 2019-03-29 16:33 | DRG 871 ==
LOC: EMEROOARM 14:35 → 3ANU 14:35 → SUATTDRO 19:29 → 3ANU 20:01 → SUATTDRO 03-25 14:35
PROVIDERS: ADMIT Pharmacist; ATTEND Student in an Organized Health Care Education/Training Program